=== PATIENT | male | born 1975 | race Caucasian/White ===

== ENCOUNTER 2019-04-01 13:27 | Observation (INO) | payer BC ==
[~2019-04-01] VITALS: Ht 180.3 cm; Wt 129.6 kg
[~2019-04-01 13:27] MED LIST: BUPIVACAINE/PF 0.5% ONE; EPINEPHRINE 1 MG/ML, 1ML ONE
[2019-04-01 13:50] VITALS: BP 125/80
[2019-04-01] MEDS ORDERED: no home meds (14:02)
[2019-04-01] MEDS ORDERED: LACTATED RINGERS 1,000 ML IV SCH (14:05)
[2019-04-01] MEDS ORDERED: APREPITANT 40 MG CAPSULE ONE (14:52)
[2019-04-01] MEDS ORDERED: ROCURONIUM 10MG/ML,5ML ONE (14:55)
[2019-04-01] MEDS ORDERED: METOPROLOL 1 MG/ML, 5ML ONE (14:55)
[2019-04-01] MEDS ORDERED: CEFOTETAN 2 GM ONE (14:55)
[2019-04-01] MEDS ORDERED: ONDANSETRON 2MG/ML, 2ML ONE (14:55)
[2019-04-01] MEDS ORDERED: KETOROLAC 30 MG/1 ML ONE (14:55)
[2019-04-01] MEDS ORDERED: SUGAMMADEX 200 MG/2 ML IVPush ONE (14:55)
[2019-04-01] MEDS ORDERED: PROPOFOL 10 MG/ML, 20ML ONE (14:55)
[2019-04-01] MEDS ORDERED: PHENYLEPHRINE 10 MG/ML ONE (14:55)
[2019-04-01] MEDS ORDERED: DEXAMETHASONE 4 MG/ML, 1ML ONE (14:55)
[2019-04-01] MEDS ORDERED: FENTANYL PF 250 MCG/5ML ONE (14:56)
[2019-04-01] MEDS ORDERED: hydrALAzine 20 MG/ML, 1ML IV PRN (15:30)
[2019-04-01] MEDS ORDERED: ACETAMINOPHEN 325 MG TABLET PO PRN (15:30)
[2019-04-01] MEDS ORDERED: MEPERIDINE/PF 25MG/ML,1ML IVPush PRN (15:30)
[2019-04-01] MEDS ORDERED: PROMETHAZINE 25 MG/ML, 1ML IV PRN (15:30)
[2019-04-01] MEDS ORDERED: FENTANYL PF 100 MCG/2ML IV PRN (15:30)
[2019-04-01] MEDS ORDERED: OXYcodone 5 MG/5 ML ORAL.SOL UDC PO PRN (15:30)
[2019-04-01] MEDS ORDERED: MEPERIDINE/PF 100 MG/ML ONE (15:54)
[2019-04-01] MEDS ORDERED: morphine SULFATE 10 MG/ML, 1ML IVPush PRN (17:30)
[2019-04-01] MEDS ORDERED: ONDANSETRON 2MG/ML, 2ML IVPush PRN (17:30)
[2019-04-01] MEDS ORDERED: DIPHENHYDRAMINE 50 MG/ML, 1ML IVPush PRN (17:30)
[2019-04-01] MEDS ORDERED: KETOROLAC 30 MG/1 ML IVPush PRN (17:30)
[2019-04-01] MEDS ORDERED: HYDROmorphone 1 MG/ML, 1ML INJ ONE (17:39)
[2019-04-01] MEDS ORDERED: FENTANYL PF 100 MCG/2ML ONE (17:39)
[2019-04-01] MEDS ORDERED: OXYcodone 5 MG/5 ML ORAL.SOL UDC ONE (17:39)
[2019-04-01] MEDS: HYDROmorphone 2 MG/ML, 1ML IVPush PRN ×2 (17:49→18:06)
[2019-04-01] MEDS: HYDROcodone/APAP 5/325 TABLET PO PRN (21:54)
[2019-04-02 01:02] VITALS: BP 113/61
[2019-04-02] MEDS: HYDROcodone/APAP 5/325 TABLET PO PRN ×4 (01:58→14:02)
[2019-04-02 05:05] VITALS: BP 120/63
[2019-04-02 08:54] VITALS: BP 116/65
[2019-04-02] MEDS ORDERED: HYDR-3240 PO (11:32)
[2019-04-02] MEDS ORDERED: ONDA4TAB7 PO (11:32)
[2019-04-02] MEDS ORDERED: FLU VACC QS2019-20 36MOS UP/PF 0.5 ML IM-VACC ONE (12:00)
[2019-04-02 14:00] VITALS: BP 142/67
== END 2019-04-02 15:21 | disposition home or self-care (01) ==
LOC: OUT 13:27 → 4NE 18:41 → OUT 23:00 → DCLOUNGE 04-02 15:07
PROVIDERS: ADMIT Surgery; ATTEND Surgery
DX: K43.6 Other and unspecified ventral hernia with obstruction, without gangrene (principal); E66.2 Morbid (severe) obesity with alveolar hypoventilation; Z23 Encounter for immunization; Z85.9 Personal history of malignant neoplasm, unspecified
CPT/HCPCS: 49653; 90471; 90686; C1781; G0378; J0171; J1100; J1170; J1885; J2175; J2370; J2405; J2704; J3010; J3490; J8501; S0020; S2900